=== PATIENT | female | born 1990 | race Caucasian/White ===

== ENCOUNTER 2017-08-06 14:48 | Emergency (ER) | payer OTHER ==
[~2017-08-06] VITALS: Ht 152.4 cm; Wt 110.0 kg
[2017-08-06 14:51] VITALS: Ht 152.4 cm; Wt 110.0 kg
--- NOTE | 2017-08-06 15:59 | ERD ---
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 She also states that she has a history of seizures but states she does not get them anymore.She denies any headaches. She denies any paresthesias or weakness anywhere else besides the face. No visual changes, nausea, vomiting. She also states she would like to be checked for STDs. She states that she has not had any fevers or chills. ROS All systems reviewed and are negative except as per history of present illness. Medications Home Meds Active Scripts Ibuprofen* (Motrin*) 600 Mg Tab, 600 MG PO Q6, #30 TAB Prov:WILLIE MORELOS PA-C 08/06/17 Acyclovir* (Acyclovir*) 400 Mg Tablet, 400 MG PO 5 TIMES DAILY, #10 TAB Prov:WILLIE MORELOS PA-C 08/06/17 Prednisone* (Prednisone*) 20 Mg Tab, 60 MG PO DAILY for 5 Days, TAB Prov:WILLIE MORELOS PA-C 08/06/17 Allergies Allergies: Coded Allergies: No Known Allergy (Verified , 09/30/12) Uncoded Allergies: nka (Allergy, Mild, 03/02/11) PMhx/Soc History of Surgery: No Anesthesia Reaction: No Hx Neurological Disorder: Yes (seizure) Hx Respiratory Disorders: Yes (asthma) Hx Cardiac Disorders: No Hx Psychiatric Problems: No Hx Miscellaneous Medical Probl: Yes (NORRIS'S PALSY) Hx Alcohol Use: No Hx Substance Use: No Hx Tobacco Use: No Smoking Status: Never smoker Physical Exam Vitals Vital Signs Date Time Temp Pulse Resp B/P Pulse Ox O2 Delivery O2 Flow Rate FiO2 08/06/17 14:51 98.1 99 18 155/80 99 Physical Exam General: Well-developed, well-nourished. The patient appears in no acute distress. HEENT: Head is normocephalic, atraumatic. No scleral icterus. Pupils are equal , round, and reactive. Oral mucous membranes are moist. No pharyngeal erythema. Neck: Supple. Nontender. Lungs: Clear to auscultation. Normal air movement. Heart: Regular rate and rhythm. S1 and S2 are normal. No murmurs, gallops, or rubs. Abdomen: Soft, nontender, nondistended. Bowel sounds are normoactive. Extremities: No clubbing or cyanosis. Normal pulses. Moving extremities x 4. No weakness. Neurologic: Alert and oriented 3. Cranial nerves II, III, IV, V, , VIII 910 1112 grossly intact. Patient is not able to elevate the right eyebrow, has weakness with closure of the right eye.Finger to nose normal. Gait normal. No nystagmus. Skin: Normal turgor. No rash or lesions. Results 24 hrs Laboratory Tests Test 08/06/17 15:50 Urine Color YELLOW Urine Clarity SLIGHTLY CLOUDY Urine pH 5.0 Urine Specific [place] 1.023 Urine Ketones NEGATIVEmg/dL Urine Nitrite NEGATIVEmg/dL Urine Bilirubin NEGATIVEmg/dL Urine Urobilinogen NEGATIVEmg/dL Urine Leukocyte Esterase 1+Amber/ul Urine Microscopic RBC 2/HPF Urine Microscopic WBC 1/HPF Urine Squamous Epithelial Cells FEW/HPF Urine Mucus FEW/HPF Urine Hemoglobin NEGATIVEmg/dL Urine Glucose NEGATIVEmg/dL Urine Total Protein NEGATIVEmg/dl Urine Test NEGATIVE DIAGNOSTIC IMAGING REPORT Patient: ROCÍO RAMIREZ : 1990 Age: 26 Sex: F [id number] DOS: 08/06/17 1541 Ordering MD: WILLIE MORELOS PA-C Location: [facility] Room/Bed: PROCEDURE: CT Brain without contrast. CLINICAL INDICATION: Right facial numbness TECHNIQUE: A CT of the brain was performed on a multidetector CT scanner utilizing axial imaging from the skull base through the vertex without IV contrast. Multiplanar reformatted images were made. Images were reviewed on a PACS workstation. The CTDIvol is us 43 mGy and the DLP is the 720 mGycm. Individualized dosed optimization technique was used for the performance of this exam. This included 1. Automated exposure control. 2. Adjustment of the mA and / or kV according to the patient's size. 3. The use of iterative reconstruction technique. COMPARISON: None FINDINGS: There is motion artifact limiting the sensitivity of the study. There is no intracranial hemorrhage, mass effect, or midline shift. No extra- axial fluid collection is seen. The ventricles and sulci are normal in size and configuration. The density of the brain is normal, and the reyes white matter differentiation appears well-preserved. The visualized paranasal sinuses and osseous structures are grossly unremarkable. IMPRESSION: 1. No evidence of acute intracranial pathology. 2. The brain is normal in appearance. .Preet Murray MD, MD Date Time Electronically viewed and signed by .Preet Murray MD, MD on 08/06/2017 16: 08 Procedures/MDM 26-year-old female presents with right-sided facial numbness, weakness, consistent with Norris's palsy.She also comes in requesting for an STD check. I have asked her to do blood work including HIV testing with a primary care doctor. She is asymptomatic at this time.Patient's examination is consistent with Norris's palsy. She does not show any signs of acute stroke or TIA. She was requesting imaging at this time given that this is her second episode of Norris's palsy with history of seizures. She has normal CT scan of the brain, stable for discharge. Departure Diagnosis: Primary Impression: Norris's palsy Additional Impression: Screen for STD (sexually transmitted disease) WILLIE MORELOS PA-C Aug 06, 2017 15:59
--- NOTE | 2017-08-06 16:08 | RADRPT ---
PROCEDURE: CT Brain without contrast. CLINICAL INDICATION: Right facial numbness TECHNIQUE: A CT of the brain was performed on a multidetector CT scanner utilizing axial imaging f rom the skull base through the vertex without IV contrast. Multiplanar reformatted images were made . Images were reviewed on a PACS workstation. The CTDIvol is us 43 mGy and the DLP is the 720 mGyc m. Individualized dosed optimization technique was used for the performance of this exam. This included 1. Automated exposure control. 2. Adjustment of the mA and / or kV according to the patient's size. 3. The use of iterative reconstruction technique. COMPARISON: None FINDINGS: There is motion artifact limiting the sensitivity of the study. There is no intracranial hemorrhage, mass effect, or midline shift. No extra-axial fluid collection is seen. The ventricles and sulci are normal in size and configuration. The density of the brain is normal, and the reyes white matter differentiation appears well-preserved. The visualized paranasal sinuses and osseous structures are grossly unremarkable. IMPRESSION: 1. No evidence of acute intracranial pathology. 2. The brain is normal in appearance. .Preet Murray MD, MD Date Time Electronically viewed and signed by .Preet Murray MD, MD on 08/06/2017 16:08 .A/
[2017-08-06 16:10] LABS: ADD UMIC YES; UR ASCORBIC ACID NEGATIVE (NEGATIVE); UR BILIRUBIN (Dip) NEGATIVE (NEGATIVE); UR BLOOD (Dip) NEGATIVE (NEGATIVE); UR CLARITY SLIGHTLY CLOUDY (CLEAR); UR COLOR YELLOW (YELLOW); UR GLUCOSE (Dip) NEGATIVE (NEGATIVE); UR KETONES (Dip) NEGATIVE (NEGATIVE); UR LEUKOCYTE ESTERASE (Dip) 1+ Leu/ul (NEGATIVE); UR MUCUS FEW /HPF (NONE SEEN); UR NITRITE (Dip) NEGATIVE (NEGATIVE); UR RBC 2 /HPF (0-5); UR SPECIFIC GRAVITY (Dip) 1.023 (1.003-1.030); UR SQUAMOUS EPITHELIAL CELL FEW /HPF (FEW); UR TOTAL PROTEIN (Dip) NEGATIVE (NEGATIVE); UR UROBILINOGEN (Dip) NEGATIVE (NEGATIVE)
[2017-08-06] MEDS ORDERED: ACYC400T2 PO (16:47)
[2017-08-06] MEDS ORDERED: PRED20TA PO (16:47)
[2017-08-06] MEDS ORDERED: IBUP-1542 PO (16:47)
== END 2017-08-06 16:58 | disposition home or self-care (01) ==
LOC: FTE 14:48
DX: G51.0 Bell's palsy (principal); J45.909 Unspecified asthma, uncomplicated; Z11.3 Encounter for screening for infections with a predominantly sexual mode of transmission
CPT/HCPCS: 70450; 81001; 84703; 87591; Z7502